=== PATIENT | female | born 1940 | race Caucasian/White ===

== ENCOUNTER 2017-07-06 12:07 | Emergency (ER) | payer OTHER ==
[~2017-07-06] VITALS: Ht 154.9 cm; Wt 53.5 kg
[~2017-07-06 12:07] MED LIST: BONIVA150 MG IM
== END 2017-07-06 17:08 | disposition home or self-care (01) ==
LOC: ER 12:07
DX: M79.662 Pain in left lower leg (principal)
CPT/HCPCS: 93971; 99283

== ENCOUNTER 2020-03-03 13:13 | Emergency (ER) | payer MEDICARE ==
[~2020-03-03] VITALS: Ht 154.9 cm; Wt 53.5 kg
== END 2020-03-03 15:43 | disposition home or self-care (01) ==
LOC: ER 13:20
DX: S01.112A Laceration without foreign body of left eyelid and periocular area, initial encounter (principal); W01.0XXA Fall on same level from slipping, tripping and stumbling without subsequent striking against object, initial encounter; Y93.01 Activity, walking, marching and hiking; Y92.008 Other place in unspecified non-institutional (private) residence as the place of occurrence of the external cause
CPT/HCPCS: 70450; 72125; 99284

== ENCOUNTER → 2022-08-07 | Outpatient (CLI) | payer MEDICARE ==
[~2022-08-07] MED LIST changes: +IOPAMIDOL 370 MG/ML 100 ML INFUS..BTL INJ ONE
[2022-08-07 16:15] LABS: CREATININE, SERUM 0.75 mg/dL (0.57-1.11)
== END ==
LOC: CT 15:18
PROVIDERS: ATTEND Family Medicine
DX: R93.89 Abnormal findings on diagnostic imaging of other specified body structures (principal); J98.4 Other disorders of lung
CPT/HCPCS: 36415; 71260; 82565; 84520; Q9967